=== PATIENT | male | born 1965 | race Caucasian/White ===

== ENCOUNTER 2018-01-25 10:20 | Outpatient (CLI) | payer MEDICARE, MEDICAID ==
--- NOTE | 2018-01-25 12:36 | RAD ---
RADIOGRAPH LEFT HIP TWO VIEWS: Date: 01-25-18 History: 52-year-old male with left hip pain, M25.552. No trauma. Comparison: None available. FINDINGS: Moderate bony hypertrophy of the lateral aspect of the acetabular roof with mild sclerosis. No signif icant joint space narrowing. Minimal irregularity of femoral head contour, but no femoral head collap se. Numerous tiny subchondral cysts at the left hip joint. Relatively normal appearance of left SI harpreet ints. No fracture. IMPRESSION: Mild to moderate osteoarthrosis of the left hip. POS: TPC
== END 2018-01-25 10:21 | disposition home or self-care (01) ==
LOC: SCSRAD 10:20
PROVIDERS: ATTEND Family Medicine
DX: M25.552 Pain in left hip (principal); M16.12 Unilateral primary osteoarthritis, left hip

== ENCOUNTER 2018-03-29 09:24 | Emergency (ER) | payer MEDICARE, MEDICAID ==
[2018-03-29] MEDS ORDERED: Dexamethasone 20 MG/5 ML VIAL ONE (09:50)
== END 2018-03-29 10:35 | disposition home or self-care (01) ==
LOC: SCSER 09:24
DX: J44.1 Chronic obstructive pulmonary disease with (acute) exacerbation (principal); I10 Essential (primary) hypertension; F41.9 Anxiety disorder, unspecified; F31.9 Bipolar disorder, unspecified; F17.210 Nicotine dependence, cigarettes, uncomplicated; Z79.899 Other long term (current) drug therapy
CPT/HCPCS: J1100; J7620

== ENCOUNTER 2018-04-05 11:18 | Outpatient (CLI) | payer MEDICARE, MEDICAID | END 2018-04-05 11:19 | disposition home or self-care (01) | LOC: ULT 11:18 | PROVIDERS: ATTEND Family Medicine | DX: R06.02 Shortness of breath (principal); I08.1 Rheumatic disorders of both mitral and tricuspid valves | CPT/HCPCS: 93306 ==

== ENCOUNTER 2018-05-13 09:42 | Outpatient (CLI) | payer MEDICARE, MEDICAID ==
--- NOTE | 2018-05-13 10:21 | RAD ---
CHEST TWO VIEWS: History: CABG. Comparison: 03-27-18 FINDINGS: Lungs are clear. No pneumothorax or effusion. Cardiac silhouette and mediastinal contours are within normal limits. IMPRESSION: No acute intrathoracic abnormality. POS: [facility]
== END 2018-05-13 09:43 | disposition home or self-care (01) ==
LOC: SCSRAD 09:42
PROVIDERS: ATTEND Family Medicine
DX: J44.1 Chronic obstructive pulmonary disease with (acute) exacerbation (principal)
CPT/HCPCS: 71046

== ENCOUNTER 2018-07-27 07:49 | Emergency (ER) | payer MEDICAID, MEDICARE ==
[2018-07-27 08:39] LABS: #Basophils 0.1 thou/uL (0.0-0.2); #Lymphocytes 1.1 thou/uL (1.20-3.40); #Monocytes 0.6 thou/uL (0.11-0.59); #Neutrophils 6.5 thou/uL (1.40-6.50); %Basophils 1.6 % (0.0-1.0); %Eosinophils 0.1 % (0.0-10.0); %Lymphocytes 13.1 % (21.0-51.0); %Monocytes 7.4 % (0.0-10.0); %Neutrophils 77.8 % (42.0-75.0); Hemoglobin 16.3 g/dL (14.0-18.0); Mean Corpuscular HGB CONC 34.4 g/dL (32.0-36.0); Mean Corpuscular Hemoglobin 32.5 pg (27.0-31.0); Mean Corpuscular Volume 94.5 fL (78.0-98.0); Mean Platelet Volume 7.4 fL (7.4-10.4); Platelet Count 232 thou/uL (130-400); RBC Distribution Width 12.5 % (11.5-14.5); Red Blood Cell (RBC) Count 5.03 mill/uL (4.70-6.10); White Blood Cell (WBC) Count 8.3 thou/uL (4.8-10.8)
--- NOTE | 2018-07-27 08:40 | RAD ---
EXAM: Chest Two Views 07/27/2018 8:36 AM HISTORY: Chest pain COMPARISON: None. FINDINGS: Heart: Normal in size and contour. Pulmonary vessels: Normal. Costophrenic angles: Clear. Lungs: There is patchy opacity overlying the heart shadow on the lateral projection likely correspond ing to an area of density overlying the heart shadow in the AP projection. No additional focal airspace opacity is present. Pneumothorax: None. Osseous structures:Intact. Additional findings: None. IMPRESSION: Patchy opacity within the region of the lingula suspicious for early pneumonia. Recommend correlation and radiographic follow-up to resolution. This is new from a comparison dated [place] 2018.
[2018-07-27 08:51] LABS: ALT (SGPT) 14 U/L (8-55); AST (SGOT) 15 U/L (5-34); Acetaminophen Less than 6.0 mcg/mL (10.0-30.0); Albumin 3.3 g/dL (3.5-5.0); Alcohol Less than 10 mg/dL (Less than 10); Alkaline Phosphatase 63 U/L (40-150); Anion Gap 14 mmol/L (10-20); BUN (Urea Nitrogen) 10 mg/dL (8.4-25.7); CK (CPK) 78 U/L (30-200); Calc. Creatinine Clearance 0 mL/min (70-130); Carbon Dioxide 19 mmol/L (22-29); Chloride 111 mmol/L (98-107); Estimated GFR-MDRD Greater than 90; Globulin 2.4 g/dL (2.4-3.5); Glucose 93 mg/dL (70-105); Lipase 9 U/L (8-78); Potassium 3.7 mmol/L (3.5-5.1); Protein, Total 5.7 g/dL (6.0-8.3); Salicylate Less than 8.0 mg/dL (15.0-30.0); Sodium 140 mmol/L (136-145)
[2018-07-27] MEDS ORDERED: cefTRIAXone\\ROCEPHIN 1 GM VIAL ONE (09:12)
[2018-07-27] MEDS ORDERED: Sodium Chloride 0.9% 100 ML ONE (09:12)
[2018-07-27 09:31] LABS: Bilirubin Negative (Negative); Blood, Urine Negative (Negative); Clarity Clear (Clear); Glucose, Urine (Dipstick) Negative (Negative); Leukocyte Negative (Negative); Nitrite Negative (Negative); Protein, Urine (Dipstick) Negative (Neg-Trace); Specific Gravity, Urine 1.015 (1.005-1.030); Urobilinogen 0.2 mg/dL (0.2-1.0)
[2018-07-27 09:50] LABS: Amphetamine Not Detected (NotDetected); Barbiturates Screen Not Detected (NotDetected); Benzodiazepine Screen Not Detected (NotDetected); Cocaine Metabolite Screen Not Detected (NotDetected); Medtox Control Line Valid? VALID (VALID); Methadone Not Detected (NotDetected); Methamphetamine Not Detected (NotDetected); Opiate Screen Not Detected (NotDetected); Oxycodone Screen Not Detected (NotDetected); Phencyclidine (PCP) Not Detected (NotDetected); THC/Cannabinoid Screen Detected (NotDetected); Tricyclic Screen Not Detected (NotDetected)
[2018-07-27 11:18] LABS: Troponin I Less than 0.010 ng/mL (< 0.028)
== END 2018-07-27 11:43 | disposition home or self-care (01) ==
LOC: SCSER 07:49
DX: J20.9 Acute bronchitis, unspecified (principal); Z71.6 Tobacco abuse counseling; I10 Essential (primary) hypertension; F41.9 Anxiety disorder, unspecified; F31.9 Bipolar disorder, unspecified; F17.210 Nicotine dependence, cigarettes, uncomplicated; Z79.51 Long term (current) use of inhaled steroids
CPT/HCPCS: 36415; 71046; 80053; 80306; 80307; 81003; 82550; 83605; 83690; 84484; 85025; 93005; 96361; 96365; 99406; J0696; J3490

== ENCOUNTER 2018-08-02 08:12 | Outpatient (CLI) | payer MEDICARE, MEDICAID ==
[2018-08-02] MEDS ORDERED: Iopamidol 370 76% 100 ML VIAL ONE (09:00)
--- NOTE | 2018-08-02 11:00 | CT ---
CT of chest, abdomen, pelvis: 08/02/2018 COMPARISON: None HISTORY: Diarrhea, weight loss TECHNIQUE: Axial CT imaging at 5 mm intervals from the thoracic inlet through the pubic symphysis wit h intravenous and oral contrast. Coronal reformatted imaging obtained. FINDINGS: No axillary, hilar, or mediastinal lymphadenopathy. No pleural, pericardial, or mediastinal fluid. Coronary arterial calcification noted. No pneumothorax noted on either side. There is a granuloma within the left lower lobe on axial image 53. There is mild subpleural cystic ch brayden in bilateral lung apices. There is a focal area of reticulonodular density within the medial aspect of the right middle lobe which may represent a mild degree of inflammatory change or could be related to scar. No significant pulmonary parenchymal abnormality noted. The osseous structures of the chest demonstrate no worrisome lytic or blastic lesions. There is no free intraperitoneal air. No free fluid is seen within the abdomen/pelvis. Liver, gallbladder, spleen, pancreas, adrenal glands, and kidneys demonstrate no acute findings. There is mild urinary bladder wall thickening, likely on the basis of underdistention. The colon is decompressed. The colonic wall is prominent in the region of the sigmoid colon and rectu m. While this may be on the basis of underdistention, colonic wall thickening is suspected. However, there is no significant pericolonic fat stranding/inflammatory change in this region. The appendix appears normal. No evidence for small bowel obstruction. There is atherosclerotic calcification of the infrarenal abdominal aortic distally and bilateral comm on iliac arteries. No retroperitoneal, pelvic, or mesenteric lymphadenopathy. Lower lumbar spine facet hypertrophy present. No lytic or blastic bone lesion noted within the abdome n or pelvis. IMPRESSION: Possible wall thickening of the distal colon involving sigmoid and rectum. Findings are s uspicious for a mild degree of colitis. Numerous additional incidental findings as detailed above.
== END 2018-08-02 08:13 | disposition home or self-care (01) ==
LOC: SCSCT 08:12
PROVIDERS: ATTEND Internal Medicine Gastroenterology
DX: K52.9 Noninfective gastroenteritis and colitis, unspecified (principal); R63.8 Other symptoms and signs concerning food and fluid intake; R91.8 Other nonspecific abnormal finding of lung field; Z80.0 Family history of malignant neoplasm of digestive organs
CPT/HCPCS: 71260; 74177; Q9967